=== PATIENT | female | born 2000 | race Caucasian/White ===

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

== ENCOUNTER 2021-08-27 11:30 | Emergency (ER) | payer BC, MEDICAID ==
[~2021-08-27] VITALS: Ht 155 cm; Wt 61.7 kg
[2021-08-27] MEDS ORDERED: KETOROLAC 30 MG/ML VIAL IVP ONE (11:45)
[2021-08-27] MEDS ORDERED: LACTATED RINGERS 1,000 ML IV SCH (11:45)
[2021-08-27] MEDS ORDERED: ONDANSETRON 4 MG/2 ML (SDV) Z0FRAN IVP ONE (11:45)
--- NOTE | 2021-08-27 11:47 | ED Abdominal Pain ---
General Stated Complaint: ABDOMINAL PAINS Source of Information: Patient Exam Limitations: No Limitations History of Present Illness Date Seen by Provider: Aug 27, 2021 Time Seen by Provider: 11:46 Initial Comments to ER with a 2 to 3-day history of intermittent and progressively worsening right lower quadrant abdominal pain. Poor appetite with nausea. She has had some loose stools. No fevers. No vomiting. History of cholecystectomy. No urinary symptoms. Timing/Duration: 2-3 Days Severity/Quality: Moderate Location: RLQ Radiation: No Radiation Activities at Onset: None Associated Symptoms: Nausea/Vomiting Allergies and Home Medications Allergies Coded Allergies: Iodinated Contrast- Oral and IV Dye (Verified Adverse Reaction, Mild, HIVES, 01/27/19) Patient Home Medication List Home Medication List Reviewed: Yes Cholecalciferol (Vitamin D3) (Vitamin D3) 1,000 Unit Tablet, 1 TAB PO DAILY, (Reported) Entered as Reported by: ARLEY REARDON on 04/21/17 1207 Hydrocodone Bit/Acetaminophen (Lortab 5 Mg Tablet) 1 Each Tablet, 1-2 TAB PO 4- 6HR PRN for PAIN Prescribed by: BELEM NEWMAN on 04/21/17 1431 Magnesium Oxide (Magnesium) 250 Mg Tablet, 1 TAB PO DAILY, (Reported) Entered as Reported by: ARLEY REARDON on 04/21/17 1207 Multivitamin (Daily Multiple Vitamin) 1 Each Tablet, 1 TAB PO DAILY, (Reported) Entered as Reported by: ARLEY REARDON on 04/21/17 1207 Polyethylene Glycol 3350 (Miralax) 17 Gm Powd.pack, 17 GM PO BID Prescribed by: PRICILLA GOMEZ on 08/27/21 1253 Review of Systems Review of Systems Constitutional: see HPI EENTM: No Symptoms Reported Respiratory: No Symptoms Reported Cardiovascular: No Symptoms Reported Gastrointestinal: See HPI, Abdominal Pain Genitourinary: No Symptoms Reported Musculoskeletal: no symptoms reported Skin: no symptoms reported Psychiatric/Neurological: No Symptoms Reported Endocrine: No Symptoms Reported Hematologic/Lymphatic: No Symptoms Reported Past Xtmbzzm-Zryjpy-Qoxtft Hx Immunizations Up To Date PED Vaccines UTD: Yes Seasonal Allergies Seasonal Allergies: No Past Medical History Surgeries: Yes (TEAR DUCT PROBE, WISDOM TEETH) Adenoidectomy, Gallbladder, Tonsillectomy Respiratory: No Cardiac: Yes (PVC'S) Irregular Heartbeat Neurological: No Reproductive Disorders: No Female Reproductive Disorders: Denies 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 Sexually Transmitted Disease: No HIV/AIDS: No Genitourinary: No Gastrointestinal: Yes Gastroesophageal Reflux, Gall Bladder Disease Musculoskeletal: No Endocrine: No HEENT: No Loss of Vision: Bilateral Hearing Impairment: Denies Cancer: No Psychosocial: No Integumentary: No Blood Disorders: No Adverse Reaction/Blood Tranf: No (N/A) Family Medical History No Pertinent Family Hx Physical Exam Vital Signs Vital Signs - First Documented 08/27/21 11:38 Temp 37.5 Pulse 83 Resp 18 B/P (MAP) 136/81 (99) Pulse Ox 99 O2 Delivery Room Air Capillary Refill : Height/Weight/BMI Height: 5'1.00" Weight: 128lbs. 0oz. 58.545255un; 21.09 BMI Method:Stated General Appearance: WD/WN, no apparent distress HEENT: PERRL/EOMI, normal ENT inspection Respiratory: no respiratory distress, no accessory muscle use Cardiovascular: regular rate, rhythm, no murmur Gastrointestinal: normal bowel sounds, soft, rebound, tenderness Extremities: normal range of motion, non-tender Neurologic/Psychiatric: alert, normal mood/affect, oriented x 3 Skin: normal color, warm/dry Progress/Results/Core Measures Results/Orders Lab Results Laboratory Tests Test 08/27/21 11:50 08/27/21 12:57 Range/Units White Blood Count 6.0 4.3-11.0 10^3/uL Red Blood Count 4.56 3.80-5.11 10^6/uL Hemoglobin 13.9 11.5-16.0 g/dL Hematocrit 41 35-52 % Mean Corpuscular Volume 89 80-99 fL Mean Corpuscular Hemoglobin 31 25-34 pg Mean Corpuscular Hemoglobin Concent 34 32-36 g/dL Red Cell Distribution Width 12.5 10.0-14.5 % Platelet Count 244 130-400 10^3/uL Mean Platelet Volume 9.4 9.0-12.2 fL Immature Granulocyte % (Auto) 0 % Neutrophils (%) (Auto) 50 42-75 % Lymphocytes (%) (Auto) 43 12-44 % Monocytes (%) (Auto) 6 0-12 % Eosinophils (%) (Auto) 1 0-10 % Basophils (%) (Auto) 1 0-10 % Neutrophils # (Auto) 3.0 1.8-7.8 10^3/uL Lymphocytes # (Auto) 2.6 1.0-4.0 10^3/uL Monocytes # (Auto) 0.3 0.0-1.0 10^3/uL Eosinophils # (Auto) 0.0 0.0-0.3 10^3/uL Basophils # (Auto) 0.0 0.0-0.1 10^3/uL Immature Granulocyte # (Auto) 0.0 0.0-0.1 10^3/uL Sodium Level 139 135-145 MMOL/L Potassium Level 3.7 3.6-5.0 MMOL/L Chloride Level 103 98-107 MMOL/L Carbon Dioxide Level 21 21-32 MMOL/L Anion Gap 15 H 5-14 MMOL/L Blood Urea Nitrogen 10 7-18 MG/DL Creatinine 0.94 0.60-1.30 MG/DL Estimat Glomerular Filtration Rate 76 BUN/Creatinine Ratio 11 Glucose Level 84 70-105 MG/DL Calcium Level 9.4 8.5-10.1 MG/DL Corrected Calcium 8.5-10.1 MG/DL Total Bilirubin 0.6 0.1-1.0 MG/DL Aspartate Amino Transf (AST/SGOT) 23 5-34 U/L Alanine Aminotransferase (ALT/SGPT) 30 0-55 U/L Alkaline Phosphatase 63 40-136 U/L C-Reactive Protein High Sensitivity 0.09 0.00-0.50 MG/DL Total Protein 7.0 6.4-8.2 GM/DL Albumin 4.6 H 3.2-4.5 GM/DL Serum Test, Qualitative NEGATIVE NEGATIVE Urine Color YELLOW Urine Clarity CLEAR Urine pH 6.0 5-9 Urine Specific [place] <=1.005 1.016-1.022 Urine Protein NEGATIVE NEGATIVE Urine Glucose (UA) NEGATIVE NEGATIVE Urine Ketones 2+ H NEGATIVE Urine Nitrite NEGATIVE NEGATIVE Urine Bilirubin NEGATIVE NEGATIVE Urine Urobilinogen 0.2 < = 1.0 MG/DL Urine Leukocyte Esterase NEGATIVE NEGATIVE Urine RBC (Auto) NEGATIVE NEGATIVE Urine RBC NONE /HPF Urine WBC RARE /HPF Urine Squamous Epithelial Cells 2-5 /HPF Urine Crystals NONE /LPF Urine Bacteria TRACE /HPF Urine Casts NONE /LPF Urine Mucus NEGATIVE /LPF Urine Culture Indicated NO My Orders Orders - PRICILLA GOMEZ HAIRSPRING STUDDER Cbc With Automated Diff (08/27/21 11:44) Comprehensive Metabolic Panel (08/27/21 11:44) Hs C Reactive Protein (08/27/21 11:44) Hcg,Qualitative Serum (08/27/21 11:44) Ed Iv/Invasive Line Start (08/27/21 11:44) Ua Culture If Indicated (08/27/21 11:44) Lactated Ringers (Lr 1000 Ml Iv Solution (08/27/21 11:45) Ketorolac Injection (Toradol Injection) (08/27/21 11:45) Ondansetron Injection (Zofran Injectio (08/27/21 11:45) Ct Abdomen/Pelvis Wo (08/27/21 11:47) Medications Given in ED Current Medications Medications Dose Ordered Sig/Johnathan Route Start Time Stop Time Status Last Admin Dose Admin Ketorolac Tromethamine 15 mg ONCE ONCE IVP 08/27/21 11:45 08/27/21 11:46 DC 08/27/21 11:56 15 MG Ondansetron HCl 8 mg ONCE ONCE IVP 08/27/21 11:45 08/27/21 11:46 DC 08/27/21 11:55 8 MG Vital Signs/I&O 08/27/21 11:38 Temp 37.5 Pulse 83 Resp 18 B/P (MAP) 136/81 (99) Pulse Ox 99 O2 Delivery Room Air Departure Communication (Admissions) NAME: JOSE REED [facility] REC#: [id number] PT STATUS: REG ER : 2000 PHYSICIAN: PRICILLA GOMEZ APRN ADMIT DATE: 08/27/21/ER Draft Date of Exam:08/27/21 CT ABDOMEN/PELVIS WO PROCEDURE: CT abdomen and pelvis without contrast. TECHNIQUE: Multiple contiguous axial images were obtained through the abdomen and pelvis without the use of intravenous contrast. Auto Exposure Controls were utilized during the CT exam to meet ALARA standards for radiation dose reduction. INDICATION: Right lower quadrant abdominal pain. COMPARISON: 01/27/2019. FINDINGS: The lung bases are clear. The heart is normal in size. There is no pericardial effusion. Liver demonstrates no focal lesions. There is hyperdensity in the gallbladder fossa, may be secondary to cholecystectomy. The spleen appears normal. The pancreas is unremarkable on this noncontrast exam. The adrenal glands appear normal. The kidneys demonstrate no hydronephrosis or hydroureter. No calculi are seen along the course of the ureters bilaterally. The bowel loops are nondistended without obstruction. The appendix appears normal. There is moderate stool in the proximal colon. No free air is seen. There is trace free fluid in the pelvis, most likely physiologic. No acute osseous abnormality is seen. IMPRESSION: 1. No findings of appendicitis. 2. Moderate stool in the proximal colon, please correlate with any history of constipation. Dictated on workstation # [id number] Dict: 08/27/21 1238 Trans: 08/27/21 1246 [id number] Interpreted by: HUMPHREY LESLIE MD Electronically signed by: Impression Primary Impression: Right lower quadrant pain Additional Impression: Constipation Disposition: 01 HOME, SELF-CARE Condition: Stable Departure-Patient Inst. Decision time for Depature: 12:13 Referrals: RONNI GARAY DO (PCP) Primary Care Physician RAMONE GARAY DNP (Family) Primary Care Physician Patient Instructions: Constipation, Adult (DC) Add. Discharge Instructions: 1. Take the laxative as directed. Return to ER for any concerns. Follow-up with your doctor next week. Scripts Polyethylene Glycol 3350 (Miralax) 17 Gm Powd.pack 17 GM PO BID, #20 EACH Prov: PRICILLA GOMEZ APRN 08/27/21 Work/School Note: Work Release Form Date Seen in the Emergency Department: Aug 27, 2021 Return to Work: Aug 28, 2021 PRICILLA GOMEZ APRN Aug 27, 2021 11:47
[2021-08-27 11:58] LABS: BASOPHILS % (AUTO) 1 % (0-10); EOSINOPHILS % (AUTO) 1 % (0-10); HEMATOCRIT 41 % (35-52); HEMOGLOBIN 13.9 g/dL (11.5-16.0); LYMPHOCYTES # (AUTO) 2.6 10^3/uL (1.0-4.0); LYMPHOCYTES % (AUTO) 43 % (12-44); MEAN CORPUSCULAR HEMOGLOBIN 31 pg (25-34); MEAN CORPUSCULAR HGB CONC 34 g/dL (32-36); MEAN CORPUSCULAR VOLUME 89 fL (80-99); MEAN PLATELET VOLUME 9.4 fL (9.0-12.2); MONOCYTES # (AUTO) 0.3 10^3/uL (0.0-1.0); MONOCYTES % (AUTO) 6 % (0-12); NEUTROPHILS % (AUTO) 50 % (42-75); PLATELET COUNT 244 10^3/uL (130-400)
[2021-08-27 12:16] LABS: ALANINE AMINOTRANSFERASE 30 U/L (0-55); ALBUMIN 4.6 GM/DL (3.2-4.5); ALKALINE PHOSPHATASE 63 U/L (40-136); BILIRUBIN,TOTAL 0.6 MG/DL (0.1-1.0); BUN/CREATININE RATIO 11; CALCIUM 9.4 MG/DL (8.5-10.1); CARBON DIOXIDE 21 MMOL/L (21-32); CHLORIDE 103 MMOL/L (98-107); CREATININE SERUM 0.94 MG/DL (0.60-1.30); GFR ESTIMATED 76; GLUCOSE 84 MG/DL (70-105); POTASSIUM 3.7 MMOL/L (3.6-5.0); SODIUM 139 MMOL/L (135-145)
--- NOTE | 2021-08-27 12:47 | Diagnostic Imaging Report ---
PROCEDURE: CT abdomen and pelvis without contrast. TECHNIQUE: Multiple contiguous axial images were obtained through the abdomen and pelvis without the use of intravenous contrast. Auto Exposure Controls were utilized during the CT exam to meet ALARA standards for radiation dose reduction. INDICATION: Right lower quadrant abdominal pain. COMPARISON: 01/27/2019. FINDINGS: The lung bases are clear. The heart is normal in size. There is no pericardial effusion. Liver demonstrates no focal lesions. There is hyperdensity in the gallbladder fossa, may be secondary to cholecystectomy. The spleen appears normal. The pancreas is unremarkable on this noncontrast exam. The adrenal glands appear normal. The kidneys demonstrate no hydronephrosis or hydroureter. No calculi are seen along the course of the ureters bilaterally. The bowel loops are nondistended without obstruction. The appendix appears normal. There is moderate stool in the proximal colon. No free air is seen. There is trace free fluid in the pelvis, most likely physiologic. No acute osseous abnormality is seen. IMPRESSION: 1. No findings of appendicitis. 2. Moderate stool in the proximal colon, please correlate with any history of constipation. Dictated by: Dictated on workstation # [id number]
[2021-08-27] MEDS ORDERED: POLY17PO6 PO (12:53)
[2021-08-27 13:07] LABS: BILIRUBIN,URINE NEGATIVE (NEGATIVE); CLARITY,URINE CLEAR; COLOR,URINE YELLOW; GLUCOSE, URINE (UA) NEGATIVE (NEGATIVE); KETONES,URINE 2+ (NEGATIVE); LEUKOCYTE ESTERASE ,URINE NEGATIVE (NEGATIVE); NITRITE,URINE NEGATIVE (NEGATIVE); PROTEIN,URINE NEGATIVE (NEGATIVE)
[2021-08-27 13:21] LABS: BACTERIA,URINE TRACE /HPF; WBC,URINE RARE /HPF
[2021-08-27 13:28] VITALS: BP 128/82
== END 2021-08-27 13:28 | disposition home or self-care (01) ==
LOC: EDUNIT# 11:30 → ER 11:34
DX: K59.00 Constipation, unspecified (principal)
CPT/HCPCS: 36415; 74176; 80053; 81000; 84703; 85025; 86141